=== PATIENT | female | born 1960 ===

== ENCOUNTER 2018-09-21 09:58 | Emergency (ER) | payer BC ==
[2018-09-21 10:38] VITALS: BP 132/72; PULSE 66; RESP 20; TEMP 98.2; O2SAT 99
[2018-09-21] MEDS ORDERED: Lidocaine 5% Patch TD STA (10:56)
[2018-09-21] MEDS ORDERED: Lidocaine 5% Patch TD ONE (11:02)
--- NOTE | 2018-09-21 11:18 | C.PDOC ---
History Of Present Illness 58 y/o female presents to the ED complaining of low back pain, which has been ongoing for some time but worse for the past 2 days. She denies any recent fall or injury. Patient states yesterday she had increased difficulty walking due to the pain. Tried icing and heating the area, and states she sustained a burn brandt. 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 Otherwise patient denies any numbness, tingling, extremity weakness, dysuria, fever, or bowel/bladder incontinence. Time Seen by Provider: 09/21/18 10:45 Chief Complaint (Nursing): Back Pain History Per: Patient History/Exam Limitations: no limitations Onset/Duration Of Symptoms: Days Current Symptoms Are (Timing): Still Present Quality Of Discomfort: "Pain" Previous Symptoms: Back Pain Associated Symptoms: None Past Medical History Reviewed: Historical Data, Nursing Documentation, Vital Signs Vital Signs: Last Vital Signs Temp 98.2 F 09/21/18 10:28 Pulse 66 09/21/18 10:28 Resp 20 09/21/18 10:28 BP 132/72 09/21/18 10:28 Pulse Ox 99 09/21/18 10:28 - Medical History PMH: No Chronic Diseases Surgical History: No Surg Hx Family History: States: No Known Family Hx - Social History Hx Tobacco Use: No Hx Alcohol Use: No Hx Substance Use: No - Immunization History Hx Tetanus Toxoid Vaccination: No Hx Influenza Vaccination: No Hx Pneumococcal Vaccination: No Review Of Systems Except As Marked, All Systems Reviewed And Found Negative. Constitutional: Negative for: Fever, Chills Gastrointestinal: Negative for: Nausea, Vomiting, Abdominal Pain Genitourinary: Negative for: Dysuria, Frequency, Incontinence Musculoskeletal: Positive for: Back Pain Neurological: Negative for: Weakness, Numbness, Incoordination Physical Exam - Physical Exam Appears: Non-toxic, No Acute Distress Skin: Warm, Dry Head: Atraumatic, Normacephalic Eye(s): bilateral: Normal Inspection, PERRL, EOMI Oral Mucosa: Moist Neck: Normal ROM Chest: Symmetrical Respiratory: No Accessory Muscle Use, Other (speaking in complete sentences) Back: No CVA Tenderness, No Vertebral Tenderness, Other (blotchy brandt to the left lumbar area, patient states the area is a burn) Extremity: Bilateral: Atraumatic, Normal Color And Temperature, Normal ROM Pulses: Left Dorsalis Pedis: Normal, Right Dorsalis Pedis: Normal Neurological/Psych: Oriented x3, Normal Speech, Normal Motor, Normal Sensation, Other (no focal deficits) ED Course And Treatment O2 Sat by Pulse Oximetry: 99 (RA) Pulse Ox Interpretation: Normal Medical Decision Making Medical Decision Making: Impression: Low back pain Plan: --Motrin 600 mg PO --Tylenol 975 mg PO --Lidoderm patch x1 --Reassess and dispo On reassessment, patient is resting comfortably, with improvement of back pain. Patient remains afebrile, with no bony tenderness, extremity numbness or weakness, or abdominal pain. Patient is ambulatory in the emergency department with no signs of discomfort. Patient was advised to follow up with physician/clinic in 1-2 days. Disposition Counseled Patient/Family Regarding: Diagnosis, Need For Followup, Rx Given - Disposition Referrals: [facility] [Outside] Disposition: HOME/ ROUTINE Disposition Time: 13:27 Condition: STABLE Prescriptions: diaZEpam [Valium] 5 mg PO HS #5 tab Ibuprofen [Motrin] 600 mg PO TID #15 tab Lidocaine 5% [Lidoderm] 1 ea TD DAILY #2 patch Instructions: Low Back Pain in Adults Forms: Gen Discharge Inst [place] Islander, Flit ([place] Islander), Work Excuse - POA Present On Arrival: None - Clinical Impression Clinical Impression: Low back pain - Scribe Statement The provider has reviewed the documentation as recorded by the Scribe Allison Salter Provider Attestation: All medical record entries made by the Scribe were at my direction and personally dictated by me. I have reviewed the chart and agree that the record accurately reflects my personal performance of the history, physical exam, medical decision making, and the department course for this patient. I have also personally directed, reviewed, and agree with the discharge instructions and disposition.
== END 2018-09-21 13:43 | disposition home or self-care (01) ==
LOC: C.ER 09:58
DX: M54.5 Low back pain (principal)

== ENCOUNTER 2019-02-02 09:38 | Emergency (ER) | payer BC ==
[2019-02-02 09:49] VITALS: RESP 18
--- NOTE | 2019-02-02 11:05 | C.PDOC ---
History Of Present Illness 59 year old female presents to the ED complaining of lower abdominal pain for 15 days. States pain feels like a constant burning sensation, does not radiate and it is not affected by eating. Denies any fever, chills, nausea, vomiting, diarrhea, dysuria, vomiting, hematuria, vaginal bleeding or discharge. Denies taking any medications for pain relief at home. Reports she tried making an appointment with PMD but was unable to get an appointment right away which prompted ED visit. Time Seen by Provider: 02/02/19 09:58 Chief Complaint (Nursing): Abdominal Pain History Per: Patient History/Exam Limitations: no limitations Onset/Duration Of Symptoms: Days (15), Persistent Current Symptoms Are (Timing): Still Present Location Of Pain/Discomfort: RLQ, LLQ Radiation Of Pain To:: None Quality Of Discomfort: Burning Associated Symptoms: denies: Fever, Chills, Vomiting, Diarrhea, Urinary Symptoms Past Medical History Reviewed: Historical Data, Nursing Documentation, Vital Signs Vital Signs: Last Vital Signs Temp 97.7 F 02/02/19 09:45 Pulse 73 02/02/19 09:45 Resp 18 02/02/19 09:45 BP 125/78 02/02/19 09:45 Pulse Ox 99 02/02/19 09:45 - Medical History PMH: Osteoporosis Other Surgeries: Hx of surgeries Family History: States: No Known Family Hx - Social History Hx Tobacco Use: No Hx Alcohol Use: No Hx Substance Use: No - Immunization History Hx Tetanus Toxoid Vaccination: No Hx Influenza Vaccination: No Hx Pneumococcal Vaccination: No Review Of Systems Constitutional: Negative for: Fever, Chills Gastrointestinal: Positive for: Abdominal Pain. Negative for: Nausea, Vomiting, Diarrhea Genitourinary: Negative for: Dysuria, Hematuria, Vaginal Discharge, Vaginal Bleeding Physical Exam - Physical Exam Appears: Non-toxic, No Acute Distress Skin: Warm, Dry, No Rash Head: Normacephalic Eye(s): bilateral: Normal Inspection Nose: Normal Oral Mucosa: Moist Neck: Supple Chest: Symmetrical Cardiovascular: Rhythm Regular, No Murmur Respiratory: Normal Breath Sounds, No Rales, No Rhonchi, No Wheezing Gastrointestinal/Abdominal: Bowel Sounds (Active), Soft, No Tenderness, No Distention, No Guarding, No Rebound Neurological/Psych: Oriented x3, Normal Speech Gait: Steady ED Course And Treatment - Laboratory Results Result Diagrams: 02/02/19 11:02 02/02/19 11:02 O2 Sat by Pulse Oximetry: 99 (RA) Pulse Ox Interpretation: Normal Medical Decision Making Medical Decision Making: Plan - Bloodwork - UA Results reviewed and were unremarkable. Patient has absolutely no tenderness on exam. Advised outpatient followup. Patient stable for discharge home. Disposition - Disposition Disposition: HOME/ ROUTINE Disposition Time: 13:37 Condition: STABLE Additional Instructions: NARENDRA VERDIN, thank you for letting us take care of you today. Your provider was Jordyn Mcclure MD and you were treated for LOWER ABDOMINAL PAIN. The emergency medical care you received today was directed at your acute symptoms. If you were prescribed any medication, please fill it and take as directed. It may take several days for your symptoms to resolve. Return to the Emergency Department if your symptoms worsen, do not improve, or if you have any other problems. Please contact your doctor or call one of the physicians/clinics you have been referred to that are listed on the Patient Visit Information form that is included in your discharge packet. Bring any paperwork you were given at discharge with you along with any medications you are taking to your follow up visit. Our treatment cannot replace ongoing medical care by a primary care provider outside of the emergency department. Thank you for allowing the [facility] team to be part of your care today. If you had an X-Ray or CT scan: A Radiologist will review the ED reading if any change in treatment is needed we will contact you. If you had a blood, urine, or wound culture: It will take several days for the results, if any change in treatment is needed we will contact you. If you had an STI test: It will take 48 hours for the results. Please call after 1 week if you have not heard back. Instructions: Acute Abdomen (Belly Pain), Adult (DC) Forms: [employer] (Nicaraguan) Print Language: FRISIAN - Clinical Impression Clinical Impression: Abdominal pain - Scribe Statement The provider has reviewed the documentation as recorded by the Scribe Sherice Salguero All medical record entries made by the Scribe were at my direction and personally dictated by me. I have reviewed the chart and agree that the record accurately reflects my personal performance of the history, physical exam, medical decision making, and the department course for this patient. I have also personally directed, reviewed, and agree with the discharge instructions and disposition.
[2019-02-02 11:14] LABS: BASO % 0.6 % (0.0-2.0); EOS # 0.1 K/uL (0.0-0.7); EOS % 1.2 % (0.0-4.0); HEMOGLOBIN 12.4 g/dL (11.0-16.0); LYMPH # 1.9 K/uL (1.0-4.3); LYMPH % 36.3 % (20.0-40.0); MEAN CELL VOLUME 94.6 fL (81.0-99.0); MEAN CORPUSCULAR HEMOGLOBIN 32.4 pg (27.0-31.0); MEAN CORPUSCULAR HGB CONC 34.3 g/dL (33.0-37.0); MEAN PLATELET VOLUME 8.1 fL (7.2-11.7); MONO # 0.4 K/uL (0.0-0.8); NEUT # 2.8 K/uL (1.8-7.0); NEUT % 53.9 % (50.0-75.0); NRBC % 0.1 % (0.0-2.0); RBC 3.81 Mil/uL (3.80-5.20); RED CELL DISTRIBUTION WIDTH 12.8 % (11.5-14.5); WHITE BLOOD COUNT 5.1 K/uL (4.8-10.8)
[2019-02-02 11:45] LABS: ALB/GLOB RATIO 1.5 (1.0-2.1); ALBUMIN 4.7 g/dL (3.5-5.0); ALT/SGPT 12 U/L (9-52); AST/SGOT 23 U/L (14-36); BLOOD UREA NITROGEN 11 mg/dL (7-17); CALCIUM 9.5 mg/dl (8.6-10.4); GFR NON-AFRICAN AMERICAN > 60
[2019-02-02 13:06] LABS: URINE BILIRUBIN NEGATIVE (NEGATIVE); URINE BLOOD NEGATIVE (NEGATIVE); URINE CLARITY Clear (Clear); URINE COLOR Yellow (YELLOW); URINE GLUCOSE (UA) NORMAL (Normal); URINE LEUKOCYTE ESTERASE NEG Leu/uL (Negative); URINE PROTEIN NEGATIVE (NEGATIVE); URINE UROBILINOGEN NORMAL mg/dL (0.2-1.0)
[2019-02-02 14:02] VITALS: BP 107/68; PULSE 67; TEMP 98.1
[2019-02-02 18:45] VITALS: O2SAT 99
== END 2019-02-02 14:03 | disposition home or self-care (01) ==
LOC: C.ER 09:38
DX: R10.31 Right lower quadrant pain (principal)